=== PATIENT | male | born 1940 | race Two or more races ===

== ENCOUNTER 2017-04-06 12:20 | Inpatient (IN) | payer OTHER ==
[~2017-04-06] VITALS: Ht 167.6 cm; Wt 60.8 kg
[2017-04-06 13:32] LABS: MEAN CORPUSCULAR HEMOGLOBIN 46.8 PG (27.0-31.0); MEAN CORPUSCULAR HGB CONC 35.8 G/DL (32.0-36.0); MEAN CORPUSCULAR VOLUME 131 FL (80-99); MEAN PLATELET VOLUME 6.8 FL (6.5-10.1); PLATELET COUNT 283 K/UL (150-450); RED BLOOD COUNT 2.02 M/UL (4.70-6.10); RED CELL DISTRIBUTION WIDTH 15.9 % (11.6-14.8); WHITE BLOOD COUNT 7.9 K/UL (4.8-10.8)
[2017-04-06 13:39] LABS: PROTHROMBIN TIME 10.7 SEC (9.30-11.50)
[2017-04-06 13:45] LABS: TROPONIN I < 0.30 ng/mL (<=0.30)
[2017-04-06 13:47] LABS: ALANINE AMINOTRANSFERASE 12 U/L (3-41); ALBUMIN/GLOBULIN RATIO 1.5 (1.0-2.7); ANION GAP 12 (5-15); ASPARTATE AMINO TRANSFERASE 18 U/L (5-40); CALCIUM 8.7 mg/dL (8.6-10.2); CARBON DIOXIDE 25 mEQ/L (20-30); CHLORIDE 103 mEQ/L (98-107); CREATININE 0.8 mg/dL (0.7-1.2); HEMOLYSIS 2; SODIUM 140 mEQ/L (135-145); TOTAL PROTEIN 6.4 g/dL (6.6-8.7)
[2017-04-06 13:54] LABS: EOSINOPHILS % (MANUAL) 1 % (0-3); LYMPHOCYTES % (MANUAL) 10 % (20-45); NEUTROPHILS % (MANUAL) 82 % (45-75); TOTAL CELLS COUNTED 100
[2017-04-06 13:55] LABS: ANISOCYTOSIS 1+; BAND NEUTROPHILS % (MANUAL) 0 % (0-8); BASOPHILS % (MANUAL) 0 % (0-2); PLATELET ESTIMATE ADEQUATE; PLATELET MORPHOLOGY NORMAL
[2017-04-06 13:56] LABS: MACROCYTES 2+
[2017-04-06 13:57] LABS: CKMB 2.1 ng/mL (< 6.7)
[2017-04-06 14:25] VITALS: BP 125/64
--- NOTE | 2017-04-06 15:47 | Diagnostic Imaging Report ---
Indication: Headache Technique: Contiguous 5 mm thick transaxial imaging of the head obtained in a Siemens Sensation [address] scanner. Soft tissue and bone windows generated. Total Dose length Product (DLP): [address] Dose Index Volume (CTDIvol): 70.38 mGy Comparison: none Findings: There is mild prominence of the ventricles, basal cisterns, and cerebral sulci consistent with atrophy. Mild, nonspecific, white matter hypoattenuation is noted throughout the brain consistent with chronic small vessel disease. There is no midline shift, edema, acute hemorrhage, mass effect, or abnormal extra-axial fluid collections. Bones and extra osseous soft tissues are unremarkable. Impression: No acute intracranial bleed, mass effect or edema. Mild atrophy of the brain. Nonspecific white matter hypoattenuation probably due to chronic small vessel disease. The CT scanner at [facility] is accredited by the [employer] and the scans are performed using dose optimization techniques as appropriate to a performed exam including Automatic Exposure control.
--- NOTE | 2017-04-06 15:47 | Diagnostic Imaging Report ---
Indication: Dyspnea Comparison: None A single view chest radiograph was obtained. Findings: Fine reticular interstitial densities are demonstrated at the lung periphery. Heart is normal in size. Bones are osteopenic. Impression: Interstitial disease. Suspect fibrosis. Further evaluation with high-resolution CT the chest may be of benefit and is suggested on nonemergent basis.
--- NOTE | 2017-04-06 15:49 | Emergency Room Report ---
History of Present Illness General Chief Complaint: Syncope Source: Patient Present Illness HPI 76-year-old M presents ED for evaluation. Patient states that yesterday at work he had a syncopal episode. Was standing when he felt dizzy and fell backwards. Unsure whether he hit his head. Patient states he feels better today but feels headache. Denies any headaches. Denies any blurry vision. Denies any chest pain or shortness of breath. No other aggravating relieving factors. Denies any other associated symptom Allergies: Coded Allergies: No Known Allergies (Unverified , 04/06/17) Patient History Past Medical History: none Past Surgical History: none Pertinent Family History: none Social History: Denies: alcohol use, drug use, smoking Immunizations: UTD Reviewed Nursing Documentation: PMH: Agreed, PSxH: Agreed Nursing Documentation-PMH Past Medical History: No Stated History Review of Systems All Other Systems: negative except mentioned in HPI Physical Exam Vital Signs Date Time Temp Pulse Resp B/P Pulse Ox O2 Delivery O2 Flow Rate FiO2 04/06/17 12:40 98.6 76 16 124/75 99 Room Air Sp02 EP Interpretation: reviewed, normal General Appearance: no apparent distress, alert, GCS 15, non-toxic Head: normocephalic, atraumatic Eyes: bilateral eye PERRL, bilateral eye normal inspection ENT: hearing grossly normal, normal pharynx, no angioedema, normal voice Neck: full range of motion, supple/symm/no masses Respiratory: chest non-tender, lungs clear, normal breath sounds, speaking full sentences Cardiovascular #1: regular rate, rhythm, no edema Cardiovascular #2: 2+ carotid (R), 2+ carotid (L), 2+ radial (R), 2+ radial (L) , 2+ dorsalis pedis (R), 2+ dorsalis pedis (L) Gastrointestinal: normal bowel sounds, non tender, soft, non-distended, no guarding, no rebound Rectal: deferred Genitourinary: normal inspection, no CVA tenderness Musculoskeletal: back normal, gait/station normal, normal range of motion, non- tender Neurologic: alert, oriented x3, responsive, motor strength/tone normal, sensory intact, speech normal Psychiatric: judgement/insight normal, memory normal, mood/affect normal, no suicidal/homicidal ideation Reflexes: 3+ bicep (R), 3+ bicep (L), 3+ tricep (R), 3+ tricep (L), 3+ knee (R) , 3+ knee (L) Skin: normal color, no rash, warm/dry, well hydrated Lymphatic: no adenopathy Medical Decision Making Diagnostic Impression: Primary Impression: Syncope Qualified Codes: R55 - Syncope and collapse ER Course Hospital Course 76-year-old M presents ED s/p syncopal episode. Differential diagnoses include: WI/unstable angina, arrythmia, dehydration, CVA/ TIA Clinical course Patient placed on stretcher. on lunchroom monitor. After initial history and physical I ordered labs, EKG, chest x-ray, IVFs, CT Brain labs reviewed- no leukocytosis, hemoglobin/hematocrit ok, electrolytes okay, troponins negative EKG- NSR no acute changes interpreted by me Chest x-ray- no acute process CT brain-unremarkable Case discussed with Dr. Davey and he agreed to accept the patient to his service for further care and support I. I feel this is a highly complex case requiring extensive working including EKG/Rhythm strip, Xray/CT/US, Blood/urine lab work, repeat exams while in ED, and administration of strong opiates/narcotics for pain control, admission to hospital or close patient follow up. Diagnosis - syncope admitted to telemetry in serious condition Labs Test 04/06/17 13:17 White Blood Count 7.9 K/UL (4.8-10.8) Red Blood Count 2.02 M/UL (4.70-6.10) Hemoglobin 9.5 G/DL (14.2-18.0) Hematocrit 26.4 % (42.0-52.0) Mean Corpuscular Volume 131 FL (80-99) Mean Corpuscular Hemoglobin 46.8 PG (27.0-31.0) Mean Corpuscular Hemoglobin Concent 35.8 G/DL (32.0-36.0) Red Cell Distribution Width 15.9 % (11.6-14.8) Platelet Count 283 K/UL (150-450) Mean Platelet Volume 6.8 FL (6.5-10.1) Neutrophils (%) (Auto) % (45.0-75.0) Lymphocytes (%) (Auto) % (20.0-45.0) Monocytes (%) (Auto) % (1.0-10.0) Eosinophils (%) (Auto) % (0.0-3.0) Basophils (%) (Auto) % (0.0-2.0) Differential Total Cells Counted 100 Neutrophils % (Manual) 82 % (45-75) Lymphocytes % (Manual) 10 % (20-45) Monocytes % (Manual) 7 % (1-10) Eosinophils % (Manual) 1 % (0-3) Basophils % (Manual) 0 % (0-2) Band Neutrophils 0 % (0-8) Platelet Estimate Adequate Platelet Morphology Normal Anisocytosis 1+ Macrocytosis 2+ Prothrombin Time 10.7 SEC (9.30-11.50) Prothromb Time International Ratio 1.0 (0.9-1.1) Activated Partial Thromboplast Time 27 SEC (23-33) Sodium Level 140 mEQ/L (135-145) Potassium Level 4.0 mEQ/L (3.4-4.9) Chloride Level 103 mEQ/L (98-107) Carbon Dioxide Level 25 mEQ/L (20-30) Anion Gap 12 (5-15) Blood Urea Nitrogen 14 mg/dL (7-23) Creatinine 0.8 mg/dL (0.7-1.2) Estimat Glomerular Filtration Rate mL/min (>60) Glucose Level 120 mg/dL (74-106) Calcium Level 8.7 mg/dL (8.6-10.2) Total Bilirubin 0.6 mg/dL (0.0-1.2) Aspartate Amino Transf (AST/SGOT) 18 U/L (5-40) Alanine Aminotransferase (ALT/SGPT) 12 U/L (3-41) Alkaline Phosphatase 65 U/L (40-129) Total Creatine Kinase 69 U/L (38-174) Creatine Kinase MB 2.1 ng/mL (< 6.7) Creatine Kinase MB Relative Index 3.0 Troponin I < 0.30 ng/mL (<=0.30) Total Protein 6.4 g/dL (6.6-8.7) Albumin 3.9 g/dL (3.5-5.2) Globulin 2.5 g/dL Albumin/Globulin Ratio 1.5 (1.0-2.7) EKG Diagnostic Results Rate: normal Rhythm: NSR ST Segments: no acute changes ASA given to the pt in ED: No Rhythm Strip Diag. Results EP Interpretation: yes Rhythm: NSR, no PVC's, no ectopy Chest X-Ray Diagnostic Results Chest X-Ray Diagnostic Results : Chest X-Ray Ordered: Yes # of Views/Limited/Complete: 1 View Indication: Other - syncope EP Interpretation: Yes Interpretation: no consolidation, no effusion, no pneumothorax, no acute cardiopulmonary disease Impression: No acute disease Interpreting ER Provider: Electronically signed by Seven Fregoso MD CT/MRI/US Diagnostic Results CT/MRI/US Diagnostic Results : Imaging Test Ordered: CT head Impression no acute process Last Vital Signs Date Time Temp Pulse Resp B/P Pulse Ox O2 Delivery O2 Flow Rate FiO2 04/06/17 12:40 98.6 76 16 124/75 99 Room Air Status: improved Disposition: ADMITTED INPATIENT Condition: Serious Referrals: NON PHYSICIAN (PCP) SEVEN FREGOSO M.D. Apr 06, 2017 15:49
[2017-04-06 15:54] VITALS: BP 113/66
[2017-04-06] MEDS ORDERED: NKM (15:58)
[2017-04-06 16:30] VITALS: BP 107/63
[2017-04-06] MEDS ORDERED: Morphine Sulfate 2mg/ml Inj IVP PRN (16:45)
[2017-04-06] MEDS ORDERED: Miralax 17gm pkt ORAL PRN (16:45)
[2017-04-06] MEDS ORDERED: LORazepam Inj 2mg/ml 1ml IV PRN (16:45)
[2017-04-06] MEDS ORDERED: DuoNeb 0.5-3(2.5)mg/3ml neb HHN PRN (16:45)
[2017-04-06] MEDS ORDERED: Nitroglycerin Subl 0.4mg tab (Bottle Of 25) SL PRN (16:45)
[2017-04-06] MEDS ORDERED: Mylanta II UD 30ml ORAL PRN (16:45)
[2017-04-06 20:00] VITALS: BP 140/75
[2017-04-06] MEDS: Heparin 5000 units/ml inj SUBQ SCH (21:32)
--- NOTE | 2017-04-06 21:53 | Consultation ---
History of Present Illness General Date patient seen: Apr 06, 2017 Chief Complaint: Syncope Referring physician: Dr. roy Reason for Consultation: pulmonary fibrosis Present Illness HPI 76-year-old male without any PMHx presented to ED for evaluation of a syncopal episode. Was standing when he felt dizzy and fell backwards. Unsure whether he hit his head. Patient states he feels better today but feels headache. Denies any headaches. Denies any blurry vision. He was found to have anemia and pulmonary fibrosis on CXR. He is admitted to telemetry for further evaluation. Allergies: Coded Allergies: No Known Allergies (Unverified , 04/06/17) Medication History Scheduled No Known Medications* (NKM - No Known Medications*), 0 ., (Reported) Patient History Healthcare decision maker Resuscitation status Full Code Advanced Directive on File No Family History Family History: (1) No pertinent past medical history Review of Systems All Other Systems: negative except mentioned in HPI Physical Exam General Appearance: WD/WN Lines, tubes and drains: peripheral, central line HEENT: normocephalic, atraumatic Neck: non-tender, normal alignment Respiratory/Chest: chest wall non-tender, lungs clear Cardiovascular/Chest: normal peripheral pulses, normal rate Last 24 Hour Vital Signs Date Time Temp Pulse Resp B/P Pulse Ox O2 Delivery O2 Flow Rate FiO2 04/06/17 20:00 97.0 72 16 140/75 97 Room Air 04/06/17 18:26 69 16 120/99 98 Room Air 04/06/17 16:30 66 12 107/63 99 Room Air 04/06/17 15:54 97.6 64 14 113/66 98 Room Air 04/06/17 14:25 98.0 80 16 125/64 100 Room Air 04/06/17 12:40 98.6 76 16 124/75 99 Room Air Laboratory Tests Test 04/06/17 13:17 White Blood Count 7.9 K/UL (4.8-10.8) Red Blood Count 2.02 M/UL (4.70-6.10) L Hemoglobin 9.5 G/DL (14.2-18.0) L Hematocrit 26.4 % (42.0-52.0) L Mean Corpuscular Volume 131 FL (80-99) H Mean Corpuscular Hemoglobin 46.8 PG (27.0-31.0) H Mean Corpuscular Hemoglobin Concent 35.8 G/DL (32.0-36.0) Red Cell Distribution Width 15.9 % (11.6-14.8) H Platelet Count 283 K/UL (150-450) Mean Platelet Volume 6.8 FL (6.5-10.1) Neutrophils (%) (Auto) % (45.0-75.0) Lymphocytes (%) (Auto) % (20.0-45.0) Monocytes (%) (Auto) % (1.0-10.0) Eosinophils (%) (Auto) % (0.0-3.0) Basophils (%) (Auto) % (0.0-2.0) Differential Total Cells Counted 100 Neutrophils % (Manual) 82 % (45-75) H Lymphocytes % (Manual) 10 % (20-45) L Monocytes % (Manual) 7 % (1-10) Eosinophils % (Manual) 1 % (0-3) Basophils % (Manual) 0 % (0-2) Band Neutrophils 0 % (0-8) Platelet Estimate Adequate Platelet Morphology Normal Anisocytosis 1+ Macrocytosis 2+ Prothrombin Time 10.7 SEC (9.30-11.50) Prothromb Time International Ratio 1.0 (0.9-1.1) Activated Partial Thromboplast Time 27 SEC (23-33) Sodium Level 140 mEQ/L (135-145) Potassium Level 4.0 mEQ/L (3.4-4.9) Chloride Level 103 mEQ/L (98-107) Carbon Dioxide Level 25 mEQ/L (20-30) Anion Gap 12 (5-15) Blood Urea Nitrogen 14 mg/dL (7-23) Creatinine 0.8 mg/dL (0.7-1.2) Estimat Glomerular Filtration Rate mL/min (>60) Glucose Level 120 mg/dL (74-106) H Calcium Level 8.7 mg/dL (8.6-10.2) Total Bilirubin 0.6 mg/dL (0.0-1.2) Aspartate Amino Transf (AST/SGOT) 18 U/L (5-40) Alanine Aminotransferase (ALT/SGPT) 12 U/L (3-41) Alkaline Phosphatase 65 U/L (40-129) Total Creatine Kinase 69 U/L (38-174) Creatine Kinase MB 2.1 ng/mL (< 6.7) Creatine Kinase MB Relative Index 3.0 Troponin I < 0.30 ng/mL (<=0.30) Total Protein 6.4 g/dL (6.6-8.7) L Albumin 3.9 g/dL (3.5-5.2) Globulin 2.5 g/dL Albumin/Globulin Ratio 1.5 (1.0-2.7) Height (Feet): 5 Height (Inches): 6.00 Weight (Pounds): 134 Medications Current Medications Medications (Trade) Dose Ordered Sig/Andrea Route PRN Reason Start Time Stop Time Status Last Admin Dose Admin Acetaminophen (Tylenol) 650 mg Q4H PRN ORAL fever 04/06/17 16:45 05/06/17 16:44 Al Hydroxide/Mg Hydroxide (Mylanta II) 30 ml Q6H PRN ORAL dyspepsia 04/06/17 16:45 05/06/17 16:44 Albuterol/ Ipratropium (DuoNeb 0.5-3(2.5)mg/3ml) 3 ml Q4H PRN HHN Shortness of Breath 04/06/17 16:45 04/11/17 16:44 Clonidine HCl (Catapres) 0.1 mg Q4H PRN ORAL SBP > 160 04/06/17 16:45 05/06/17 16:44 Dextrose (Dextrose 50%) STAT PRN IV Hypoglycemia 04/06/17 16:45 05/06/17 16:44 Heparin Sodium (Porcine) (Heparin 5000 units/ml) 5,000 units EVERY 12 HOURS SUBQ 04/06/17 21:00 05/06/17 20:59 04/06/17 21:32 Lorazepam (Ativan 2mg/ml 1ml) 0.5 mg Q4H PRN IV For Anxiety 04/06/17 16:45 04/13/17 16:44 Morphine Sulfate (Morphine Sulfate) 1 mg Q4H PRN IVP For Pain 7-10 04/06/17 16:45 04/13/17 16:44 Nitroglycerin (Ntg) 0.4 mg Q5M X 3 DOSES PRN SL Prn Chest Pain 04/06/17 16:45 05/06/17 16:44 Ondansetron HCl (Zofran) 4 mg Q6H PRN IVP Nausea & Vomiting 04/06/17 16:45 05/06/17 16:44 Polyethylene Glycol (Miralax) 17 gm HSPRN PRN ORAL Constipation 04/06/17 16:45 05/06/17 16:44 Temazepam (Restoril) 15 mg HSPRN PRN ORAL Insomnia 04/06/17 16:45 04/13/17 16:44 Assessment/Plan Problem List: (1) Syncope ICD Codes: R55 - Syncope and collapse SNOMED: 541973890 Qualifiers: Qualified Codes: R55 - Syncope and collapse (2) Pulmonary fibrosis ICD Codes: J84.10 - Pulmonary fibrosis, unspecified SNOMED: 91528518 (3) Anemia ICD Codes: D64.9 - Anemia, unspecified SNOMED: 045269270 Assessment/Plan tele monitoring echo doppler of carotid artery CT chest anemia w/u CONCHITA LUGO Apr 06, 2017 21:53
[2017-04-07] VITALS: BP 109/64
[2017-04-07 04:00] VITALS: BP 113/68
[2017-04-07 07:24] LABS: MEAN CORPUSCULAR HEMOGLOBIN 46.8 PG (27.0-31.0); MEAN CORPUSCULAR HGB CONC 35.5 G/DL (32.0-36.0); MEAN CORPUSCULAR VOLUME 132 FL (80-99); MEAN PLATELET VOLUME 6.4 FL (6.5-10.1); PLATELET COUNT 280 K/UL (150-450); RED BLOOD COUNT 2.11 M/UL (4.70-6.10); RED CELL DISTRIBUTION WIDTH 16.1 % (11.6-14.8); WHITE BLOOD COUNT 7.2 K/UL (4.8-10.8)
[2017-04-07 07:46] LABS: PROTHROMBIN TIME 10.2 SEC (9.30-11.50)
[2017-04-07 07:54] LABS: ALANINE AMINOTRANSFERASE 11 U/L (3-41); ALBUMIN/GLOBULIN RATIO 1.3 (1.0-2.7); ANION GAP 10 (5-15); ASPARTATE AMINO TRANSFERASE 18 U/L (5-40); CALCIUM 8.8 mg/dL (8.6-10.2); CARBON DIOXIDE 26 mEQ/L (20-30); CHLORIDE 104 mEQ/L (98-107); CHOLESTEROL 152 mg/dL (< 200); CREATININE 0.8 mg/dL (0.7-1.2); LACTATE DEHYDROGENASE 468 U/L (135-230); LDL CHOLESTEROL (CALC.) 81 mg/dL (60-99); POTASSIUM 4.5 mEQ/L (3.4-4.9); SODIUM 140 mEQ/L (135-145); TOTAL PROTEIN 6.4 g/dL (6.6-8.7)
[2017-04-07 08:00] VITALS: BP 120/65
[2017-04-07 08:23] LABS: ANISOCYTOSIS 1+; BAND NEUTROPHILS % (MANUAL) 5 % (0-8); BASOPHILS % (MANUAL) 0 % (0-2); EOSINOPHILS % (MANUAL) 2 % (0-3); LYMPHOCYTES % (MANUAL) 20 % (20-45); MACROCYTES 2+; NEUTROPHILS % (MANUAL) 67 % (45-75); PLATELET ESTIMATE ADEQUATE; PLATELET MORPHOLOGY NORMAL; TOTAL CELLS COUNTED 100
[2017-04-07 08:24] LABS: HYPOCHROMASIA 1+
[2017-04-07 08:31] LABS: HEMOLYSIS 18; IRON 72 ug/dL (59-158); TOTAL IRON BINDING CAPACITY 221 ug/dL (250-400)
[2017-04-07] MEDS: Heparin 5000 units/ml inj SUBQ SCH ×2 (08:38→20:56)
[2017-04-07 09:34] LABS: RETICULOCYTE COUNT 0.9 % (0.0-2.0)
[2017-04-07 09:35] LABS: ERYTHROCYTE SEDIMENTATION RATE 93 MM/HR (0-20)
[2017-04-07 09:38] LABS: PATH BLOOD SMEAR/OMC SENT TO PATHOLOGIST
[2017-04-07 10:37] LABS: OTHERS PATHOLOGIST COMMENT
--- NOTE | 2017-04-07 11:59 | History & Physical ---
History and Physical History & Physicial Zaid Davey MD Apr 07, 2017 11:59
[2017-04-07 12:00] VITALS: BP 110/75
[2017-04-07] MEDS ORDERED: Vitamin B12 1000mcg/ml Inj IM SCH (13:00)
[2017-04-07] MEDS ORDERED: Promethazine/Codeine 5ml UD ORAL PRN (13:15)
[2017-04-07 16:00] VITALS: BP 118/66
--- NOTE | 2017-04-07 16:14 | Diagnostic Imaging Report ---
Indication: Chest pain Technique: Continuous helical transaxial imaging of the chest was obtained from the thoracic inlet to the upper abdomen. No intravenous contrast was administered. Coronal 2-D reformats were also obtained. Total Dose length Product (DLP): [address] Dose Index Volume (CTDIvol): 16 mGy Comparison: none Findings: There are peripheral reticular densities demonstrated within both upper and lower lobes but worse within the lower lobe. Honeycombing noted at the lung bases. There is no airspace consolidation. Aorta is mildly calcified. No adenopathy or abnormal fluid collections demonstrated within the chest. There are multiple gallstones present within a contracted gallbladder. There is apparent left hydronephrosis with dilatation of the upper pole calyces. This is not evaluated adequately on the current study. It is possible that the findings due to parapelvic cysts rather than hydronephrosis. Impression: Interstitial: Fibrosis. Mild atherosclerotic disease Gallstones Left hydronephrosis versus parapelvic cysts not adequately visualized or evaluated on this exam. The CT scanner at [facility] is accredited by the [employer] and the scans are performed using dose optimization techniques as appropriate to a performed exam including Automatic Exposure control.
--- NOTE | 2017-04-07 17:24 | Cardiology Progress Note ---
Assessment/Plan Assessment/Plan syncope probable voluem depletion anemia sever vit b12 deff pulm fibrosis inclease ldh nrom retic ivf orthosttic vitla folatic acid b12 echo [id number] Objective Last 24 Hour Vital Signs Date Time Temp Pulse Resp B/P Pulse Ox O2 Delivery O2 Flow Rate FiO2 04/07/17 16:00 97.9 79 19 118/66 97 Room Air 04/07/17 12:00 97.9 92 19 110/75 98 Room Air 04/07/17 12:00 71 04/07/17 08:13 70 18 Room Air 04/07/17 08:00 74 04/07/17 08:00 97.5 74 19 120/65 95 Room Air 04/07/17 04:00 97.9 74 16 113/68 95 Room Air 04/07/17 04:00 80 04/07/17 00:00 68 04/07/17 00:00 98.2 69 18 109/64 97 Room Air 04/06/17 20:00 97.0 72 16 140/75 97 Room Air 04/06/17 20:00 70 04/06/17 18:26 69 16 120/99 98 Room Air Intake and Output 04/06/17 04/07/17 19:00 07:00 Intake Total 1000 ml 120 ml Balance 1000 ml 120 ml Intake Oral 0 ml 120 ml IV Total 1000 ml # Voids 3 # Bowel Movements 2 Laboratory Tests Test 04/07/17 06:45 04/07/17 11:00 White Blood Count 7.2 K/UL (4.8-10.8) Red Blood Count 2.11 M/UL (4.70-6.10) L Hemoglobin 9.9 G/DL (14.2-18.0) L Hematocrit 27.8 % (42.0-52.0) L Mean Corpuscular Volume 132 FL (80-99) H Mean Corpuscular Hemoglobin 46.8 PG (27.0-31.0) H Mean Corpuscular Hemoglobin Concent 35.5 G/DL (32.0-36.0) Red Cell Distribution Width 16.1 % (11.6-14.8) H Platelet Count 280 K/UL (150-450) Mean Platelet Volume 6.4 FL (6.5-10.1) L Neutrophils (%) (Auto) % (45.0-75.0) Lymphocytes (%) (Auto) % (20.0-45.0) Monocytes (%) (Auto) % (1.0-10.0) Eosinophils (%) (Auto) % (0.0-3.0) Basophils (%) (Auto) % (0.0-2.0) Differential Total Cells Counted 100 Neutrophils % (Manual) 67 % (45-75) Lymphocytes % (Manual) 20 % (20-45) Monocytes % (Manual) 6 % (1-10) Eosinophils % (Manual) 2 % (0-3) Basophils % (Manual) 0 % (0-2) Band Neutrophils 5 % (0-8) Platelet Estimate Adequate Platelet Morphology Normal Hypochromasia 1+ Anisocytosis 1+ Macrocytosis 2+ Erythrocyte Sedimentation Rate 93 MM/HR (0-20) H Reticulocyte Count 0.9 % (0.0-2.0) Prothrombin Time 10.2 SEC (9.30-11.50) Prothromb Time International Ratio 1.0 (0.9-1.1) Activated Partial Thromboplast Time 28 SEC (23-33) Sodium Level 140 mEQ/L (135-145) Potassium Level 4.5 mEQ/L (3.4-4.9) Chloride Level 104 mEQ/L (98-107) Carbon Dioxide Level 26 mEQ/L (20-30) Anion Gap 10 (5-15) Blood Urea Nitrogen 13 mg/dL (7-23) Creatinine 0.8 mg/dL (0.7-1.2) Estimat Glomerular Filtration Rate mL/min (>60) Glucose Level 102 mg/dL (74-106) Calcium Level 8.8 mg/dL (8.6-10.2) Iron Level 72 ug/dL (59-158) Total Iron Binding Capacity 221 ug/dL (250-400) L Percent Iron Saturation 33 % (15-50) Unsaturated Iron Binding 149 ug/dL (112-346) Total Bilirubin 0.5 mg/dL (0.0-1.2) Aspartate Amino Transf (AST/SGOT) 18 U/L (5-40) Alanine Aminotransferase (ALT/SGPT) 11 U/L (3-41) Alkaline Phosphatase 62 U/L (40-129) Lactate Dehydrogenase 468 U/L (135-230) H Total Protein 6.4 g/dL (6.6-8.7) L Albumin 3.7 g/dL (3.5-5.2) Globulin 2.7 g/dL Albumin/Globulin Ratio 1.3 (1.0-2.7) Triglycerides Level 103 mg/dL (< 150) Cholesterol Level 152 mg/dL (< 200) LDL Cholesterol 81 mg/dL (60-99) HDL Cholesterol 50 mg/dL (> 60) Cholesterol/HDL Ratio 3.0 (3.3-4.4) L Carcinoembryonic Antigen 5.9 ng/mL H Vitamin B12 Level 30 pg/mL (211-946) L Folate Pending Thyroid Stimulating Hormone (TSH) 1.400 uIU/mL (0.300-4.500) Stool Occult Blood Pending SHAE PATEL Apr 07, 2017 17:24
--- NOTE | 2017-04-07 19:45 | History and Physical Report ---
DATE OF ADMISSION: 04/06/2017 CHIEF COMPLAINT: Dizziness and syncope. HISTORY OF PRESENT ILLNESS: This is a 76-year-old gentleman, denies any past medical history and past surgical history, who has presented to the hospital. While he was at work, he felt dizzy. He collapsed and fell backward and the patient is unsure that he hit the head. The patient felt like some headache. No nausea or vomiting. No prior history of dizziness in the past or heart disease. Denies any blurry vision. Denies any double vision. No seizure activity. No bowel or urinary incontinence. The patient shortly after initial evaluation in the emergency was found to be anemic and subsequently was admitted to the hospital with syncope with collapse as well as anemia. Chest x-ray confirmed the patient has a pulmonary fibrosis and the patient subsequently was admitted to telemetry for further evaluation and workup. PAST MEDICAL HISTORY AND PAST SURGICAL HISTORY: As above. He denies any past medical history or past surgical history. MEDICATIONS AT HOME: None. ALLERGIES: No known drug allergies. SOCIAL HISTORY: Denies any smoking, alcohol, or drugs. FAMILY HISTORY: Noncontributory. REVIEW OF SYSTEMS: Mostly unremarkable except what is mentioned earlier in the history of present illness. Denies any double vision. Denies any suicidal or homicidal ideation. Denies any hemoptysis or hematochezia. Denies any bowel or urinary incontinence. PHYSICAL EXAMINATION: VITAL SIGNS: Upon arrival, temperature 98.6 degrees, pulse of 76, respirations 16, and blood pressure 124/75. GENERAL: The patient is awake, responsive, and in no acute distress. HEENT: Pupils reactive to light. Extraocular movements intact. NECK: Supple. No JVD. LUNGS: Good air entry. No wheezing or rales. HEART: S1 and S2. Regular rhythm. No gallops. ABDOMEN: Soft, nondistended, and nontender. Positive bowel sounds. EXTREMITIES: No cyanosis, clubbing, or edema. NEUROLOGIC: Cranial nerves II through XII are grossly intact. The patient is moving all his extremities. Gait was intact. LABORATORY DATA: On admission from the ER, WBC of 7.9, hemoglobin 9.5, hematocrit 26, and platelets is 283,000. Sodium 140, potassium 4.0, chloride 103, bicarbonate 25, BUN 14, creatinine 0.8, and glucose is 120. Calcium is 8.7. First troponin less than 0.30. Total protein 6.4. PT of 10, INR 1.0, and PTT of 27. The patient's chest x-ray showed the interstitial disease suspected fibrosis. The patient had a CT of the head was done. No acute intracranial bleed, mass effect, or edema. Mild atrophy of the brain and nonspecific white matter hypoattenuation probably due to the chronic mild disease. The patient had a carotid duplex that was unremarkable except for minimal changes in the 30% to 40% ICA on the right side as well as left side. EKG is noted to be in normal sinus rhythm and ventricular rate of 89. No ST elevation. No T-wave inversion was noted. ASSESSMENT: 1. Syncope with collapse. 2. Pulmonary fibrosis. 3. Anemia with macrocytic anemia, possible vitamin B12 deficiency. PLAN: We will follow up with the Pulmonary consultation with Dr. Xie and CT scan of the chest. We will follow up with the echocardiogram, monitor laboratory closely, anemia workup, and 2D echo. Code status is Full Code. DVT prophylaxis with heparin subcutaneously. Zaid Davey M.D. DR: BRENDA JOB#: [id number] CC:
[2017-04-07 20:00] VITALS: BP 109/68
[2017-04-08] VITALS: BP 101/59
--- NOTE | 2017-04-08 03:00 | Consultation ---
DATE OF CONSULTATION: 04/07/2017 CARDIOLOGY CONSULTATION REFERRING PHYSICIANS: 1. Cheri Xie M.D. 2. Zaid Davey M.D. REASON FOR REFERRAL: Syncope. HISTORY OF PRESENT ILLNESS: This is a 76-year-old gentleman, who is apparently working in a restaurant. As I understand it, he tells me that he had a cold with some sore throat and some phlegm for couple of days and he felt dizzy and apparently he fell. He is not sure if he had hit his head. He states he thinks he may have also slipped, but he is not sure. Nevertheless, he was evaluated by the paramedics and was admitted to the hospital here at [facility]. He feels fine now. When he stood up, he will feel somewhat dizzy and he had to have somebody help him at times too. He does not have any chest pain or pressure. There is no PND or orthopnea. No palpitations. PAST MEDICAL HISTORY: He denies any diabetes, high blood pressure, heart attack, cancer, stroke, hepatitis, tuberculosis, asthma, or emphysema. No ulcers. No kidney problems, liver problems, or thyroid problems. He does have a history of anemia few years ago, but he never followed up just to find out. No other medical problems. ALLERGIES: He is not allergic to any medications. SOCIAL HISTORY: He does not smoke at this time although he used to 30 years ago. He does drink alcoholic beverages. No drug use. REVIEW OF SYSTEMS: Gastrointestinal: He denies any nausea, vomiting, diarrhea, or constipation. Genitourinary: He denies. Pulmonary: Positive for some cough and sputum production with white to yellow phlegm. Constitutional: Negative. Neurologic: Negative. PHYSICAL EXAMINATION: GENERAL: Shows to be elderly gentleman, in no respiratory distress. HEENT: Unremarkable. NECK: Supple. No jugular venous distention. No abdominojugular reflux noted. LUNGS: Clear to auscultation and percussion for the most part, although he does have some basilar crackles on the left side that cleared with further . CARDIAC: Somewhat irregular although it may be just a ectopy. No heaves or thrills or gallops noted. ABDOMEN: Soft and nontender. Positive bowel sounds. EXTREMITIES: There is no clubbing, cyanosis, or edema. NEUROLOGIC: He is awake, alert, responsive, and in no apparent respiratory distress. DIAGNOSTIC DATA AND LABORATORY VALUES: A carotid duplex showed 40% stenosis on the right side and also on the left side and possibly even approaching 50% the distal internal carotid artery. His electrocardiogram shows sinus rhythm, normal QRS axis, no ST or T wave abnormalities. His telemetry data shows sinus rhythm with some PACs being noted on several occasions. No evidence of atrial fibrillation. His blood test, sodium 140, potassium 4.5, chloride 104, bicarbonate 26, BUN 30, creatinine 0.8, and glucose of 102. Iron is 72, 32% saturation. Liver function tests are normal. LDH is 468. Total protein 6.4. Total cholesterol 152 with a LDL of 81 and HDL of 50. His CEA of 5.9. His B12 is only 30. TSH of 1.4. His INR is 1.3 and a PTT of 28. His x-rays and CT scan of the chest was performed showed basically interstitial fibrosis, mild atherosclerosis, gallstones, left hydronephrosis versus parapelvic cyst. CT scan of the head that showed no intracranial bleed, mass effect, or edema. Mild atrophy of the brain. Nonspecific white matter. Chest x-ray was also performed shows interstitial disease that suspect fibrosis. ASSESSMENT AND PLAN: 1. Syncope. 2. Anemia. 3. Interstitial pulmonary fibrosis. 4. B12 deficiency. 5. Elevated LDH. This patient was seen in cardiac consultation. Based on the symptoms, it is possible that he basically had syncope secondary to volume depletion. He had not been eating much and drinking much over the past two days prior to this episode and he was getting some dizziness on standing. He is somewhat anemic with hemoglobin down to 9.9. His vitamin B12 was significantly decreased and requires administration of vitamin B12 and folic acid. He some intravenous fluids, orthostatic vitals will be checked for further evaluation for the cause of pulmonary fibrosis as per Dr. Xie, and echocardiogram will be ordered to complete the syncope although I suspect, like I said, volume depletion. Thank you, Dr. Davey, for allowing me to participate in the care of this patient. Mathew Rush M.D. DR: JUSTYN JOB#: [id number] CC:
[2017-04-08 07:33] LABS: TROPONIN I < 0.30 ng/mL (<=0.30)
[2017-04-08 08:38] VITALS: BP 118/66
[2017-04-08] MEDS ORDERED: Vitamin B12 1000mcg/ml Inj SUBQ SCH (09:00)
[2017-04-08] MEDS: Heparin 5000 units/ml inj SUBQ SCH (09:17)
--- NOTE | 2017-04-08 11:05 | Pulmonology Progress Note ---
Assessment/Plan Problems: (1) Syncope (2) Pulmonary fibrosis (3) Anemia Assessment/Plan OB pending cardio note appreciated echo reviewed pt/ot med/surg dc home when OK with Cardio Subjective ROS Limited/Unobtainable: No Constitutional: Reports: no symptoms HEENT: Repors: no symptoms Allergies: Coded Allergies: No Known Allergies (Unverified , 04/06/17) Objective Last 24 Hour Vital Signs Date Time Temp Pulse Resp B/P Pulse Ox O2 Delivery O2 Flow Rate FiO2 04/08/17 09:45 97.0 04/08/17 09:10 95 04/08/17 09:05 92 04/08/17 09:02 97 16 Room Air 04/08/17 09:00 82 04/08/17 08:38 97.0 83 18 118/66 97 Room Air 04/08/17 08:02 104 04/08/17 04:59 79 04/08/17 04:00 72 89 97 04/08/17 00:00 69 04/08/17 00:00 98.2 67 18 101/59 97 Room Air 04/07/17 20:00 79 04/07/17 20:00 98.2 78 18 109/68 97 Room Air 04/07/17 19:56 80 18 Room Air 04/07/17 18:00 74 85 97 04/07/17 16:00 78 04/07/17 16:00 97.9 79 19 118/66 97 Room Air 04/07/17 12:00 97.9 92 19 110/75 98 Room Air 04/07/17 12:00 71 Intake and Output 04/07/17 04/08/17 19:00 07:00 Intake Total 720 ml Balance 720 ml Intake Oral 720 ml # Voids 2 2 # Bowel Movements [address] chest reviewed, mild pulmonary fibrosis OB pending echo reviewed General Appearance: WD/WN Lines, tubes and drains: peripheral, central line HEENT: normocephalic, atraumatic Neck: non-tender, normal alignment Respiratory/Chest: chest wall non-tender, lungs clear Cardiovascular/Chest: normal peripheral pulses, normal rate Laboratory Tests 04/08/17 05:05: Troponin I < 0.30, Pro-B-Type Natriuretic Peptide 90 Current Medications Medications (Trade) Dose Ordered Sig/Andrea Route PRN Reason Start Time Stop Time Status Last Admin Dose Admin Acetaminophen (Tylenol) 650 mg Q4H PRN ORAL fever 04/06/17 16:45 05/06/17 16:44 Al Hydroxide/Mg Hydroxide (Mylanta II) 30 ml Q6H PRN ORAL dyspepsia 04/06/17 16:45 05/06/17 16:44 Albuterol/ Ipratropium (DuoNeb 0.5-3(2.5)mg/3ml) 3 ml Q4H PRN HHN Shortness of Breath 04/06/17 16:45 04/11/17 16:44 Clonidine HCl (Catapres) 0.1 mg Q4H PRN ORAL SBP > 160 04/06/17 16:45 05/06/17 16:44 Cyanocobalamin (Vitamin B12) 1,000 mcg DAILY SUBQ 04/08/17 09:00 04/12/17 09:01 04/08/17 09:14 Dextrose (Dextrose 50%) STAT PRN IV Hypoglycemia 04/06/17 16:45 05/06/17 16:44 Heparin Sodium (Porcine) (Heparin 5000 units/ml) 5,000 units EVERY 12 HOURS SUBQ 04/06/17 21:00 05/06/17 20:59 04/08/17 09:17 Lorazepam (Ativan 2mg/ml 1ml) 0.5 mg Q4H PRN IV For Anxiety 04/06/17 16:45 04/13/17 16:44 Morphine Sulfate (Morphine Sulfate) 1 mg Q4H PRN IVP For Pain 7-04/06/17 16:45 04/13/17 16:44 04/08/17 09:16 Nitroglycerin (Ntg) 0.4 mg Q5M X 3 DOSES PRN SL Prn Chest Pain 04/06/17 16:45 05/06/17 16:44 Ondansetron HCl (Zofran) 4 mg Q6H PRN IVP Nausea & Vomiting 04/06/17 16:45 05/06/17 16:44 Polyethylene Glycol (Miralax) 17 gm HSPRN PRN ORAL Constipation 04/06/17 16:45 05/06/17 16:44 Promethazine HCl/ Codeine (Phenergan with Codeine) 5 ml Q4H PRN ORAL For Cough 04/07/17 13:15 05/07/17 13:14 04/07/17 18:09 Temazepam (Restoril) 15 mg HSPRN PRN ORAL Insomnia 04/06/17 16:45 04/13/17 16:44 CONCHITA LUGO Apr 08, 2017 11:05
--- NOTE | 2017-04-09 17:31 | Cardiology Report ---
APPROVED REPORT EXAM: Two-dimensional and M-mode echocardiogram with Doppler and color Doppler. INDICATION Left ventricular function M-Mode DIMENSIONS IVSd0.5 (0.7-1.1cm)Left Atrium (MM)3.1 (1.6-4.0cm) LVDd4.2 (3.5-5.6cm)Aortic Root3.3 (2.0-3.7cm) PWd0.6 (0.7-1.1cm)Aortic Cusp Exc.1.9 (1.5-2.0cm) LVDs2.3 (2.5-4.0cm) PWs0.6 cm Normal left ventricular chamber size, systolic function and wall motion. Left ventricular ejection fraction estimated to be 55-60 %. No evidence of left ventricular hypertrophy. No evidence of pericardial fat or effusion. Right cardiac chamber sizes are within normal limits. Mild left atrial enlargement by 2D. Focal aortic valve sclerosis with adequate cusp excursion Thickened mitral valve leaflets with normal excursion. Mitral annulus and aortic root calcification. Pulmonic valve not well visualized. Normal tricuspid valve structure. IVC is normal in size with physiological collapse. A color flow and spectral Doppler study was performed and revealed: No aortic regurgitation. No mitral regurgitation. Left ventricular diastolic dysfunction grade 1. Mild tricuspid regurgitation. Tricuspid systolic velocities suggests peak right ventricular systolic pressure of 16mmHg
--- NOTE | 2017-04-09 17:52 | Cardiology Report ---
APPROVED REPORT EKG Measurement Heart [id number] ND [id number] Sinus rhythm with marked sinus arrhythmia Otherwise normal ECG
--- NOTE | 2017-04-10 12:26 | Diagnostic Imaging Report ---
APPROVED REPORT CPT Code: 19309 Vascular Symptoms Dizziness and Vertigo Syncope Doppler Spectral Velocity Analysis RightLeft dICA86/31 cm/gsUIO690/44 cm/s gUJJ860/37 cm/qdXQK351/32 cm/s cBMW553/35 cm/spICA91/31 cm/s ECA76/8 cm/sECA79/13 cm/s dCCA70/18 cm/sdCCA80/22 cm/s mCCA85/27 cm/smCCA93/23 cm/s pCCA95/26 cm/wuIUA979/22 cm/s Vert.69/19 cm/sVert.58/19 cm/s Right ICA/CCA ratio1.1Left ICA/CCA ratio1.5 RIGHT SIDE: CCA/BULB- Imaging reveals irregular, mild plaque in the carotid bulb and minimal plaque in the carotid artery. Doppler spectral flow analysis indicates the degree of stenosis in the proximal ICA is mild (30%-40%). ECA - Imaging reveals no significant plaque in the external carotid artery. VERTEBRAL - The vertebral artery is patent, without evidence of stenosis or steal. LEFT SIDE: CCA/BULB- Imaging reveals irregular, mild plaque in the carotid bulb and minimal plaque in the carotid artery. Doppler spectral flow analysis indicates the degree of stenosis in the proximal ICA is mild (30%-40%). However, distal ICA velocities indicate a possible stenosis approaching 50%. ECA - Imaging reveals minimal stenosis (20%-30%) in the external carotid artery. VERTEBRAL - The vertebral artery is patent, without evidence of stenosis or steal.
--- NOTE | 2017-04-10 14:55 | Discharge Summary ---
Discharge Summary Hospital Course Date of Admission Apr 06, 2017 at 15:10 Date of Discharge Apr 08, 2017 at 12:38 Admitting Diagnosis sepsis HPI Moshe Gaffney is a 76 year old male who was admitted on Apr 06, 2017 at 15:10 for Sepsis Hospital Course dc summary #[id number] Discharge Condition Upon Discharge: stable Discharge Disposition Patient was discharged to Home (01) Discharge Diagnoses: Discharge Instructions Discharge Instructions Special Instructions I have been assigned to complete a D/C Summary on this account. I was not involved in the patient management Yobany Newellemily)Peggy NP Apr 10, 2017 14:55
--- NOTE | 2017-04-10 20:30 | Discharge Summary 2 SIG ---
DATE OF ADMISSION: 04/06/2017 DATE OF DISCHARGE: 04/08/2017 REASON FOR ADMISSION: This is a 76-year-old male without past medical history, while at work, felt dizzy and he fell backwards. He is unsure if he hit his head. He felt better the next day, but still felt headache. He denied blurry vision. Denied chest pain or shortness of breath. In the emergency department, CT of the head was done, which revealed no acute intracranial pathology. Blood pressure was stable. Pulse oximetry was stable on room air. The patient was admitted for further evaluation. EKG revealed normal sinus rhythm. No acute ischemic changes. Chest x-ray revealed no acute process, but was consistent with interstitial disease, suspect fibrosis. Laboratory work revealed a microcytic anemia with hemoglobin 9.5, hematocrit 26.4, and MCV 131. ADMITTING DIAGNOSES: Includes: 1. Syncope with collapse. 2. Microcytic anemia. 3. Possible fibrosis. HOSPITAL STAY: The patient was admitted. Pulmonology and Cardiology consults were requested. Initially on IV fluids; Sales Associate Fishing seen and evaluated the patient. Supplemental oxygen provided as needed to keep pulse oximetry above 92%. Pulse oximetry was stable on room air. Pulmonary toilet provided as needed. The patient subsequently undergone CT of the chest, which revealed interstitial fibrosis. Echocardiogram revealed ejection fraction of 55% to 60% and right ventricular systolic pressure of 26. Relay Adjuster seen and evaluated the patient. Per Cardiology, syncope probably related to volume depletion, since the patient stated that he did not have much of oral intake or drinking fluids for the last two days prior to the episode , and he was getting dizziness on standing. The patient was anemic, which could have contributed to syncope as well. However, per mica miner blasting, the cause of syncope, likely was related to volume depletion. Orthostatic vital signs were stable. Anemia workup revealed B12 deficiency. The patient was on the daily B12 injections while in the hospital. The patient will need monthly B12 injections by primary medical doctor, which was explained to the patient , as well as the need to check B 12 level. DVT prophylaxis provided. The patient was working with physical and occupational therapists. Carotid duplex revealed mild stenosis, however, distal internal carotid artery approached 50% of stenosis. Recommended to follow up as outpatient with the primary doctor for further management. Pulmonary fibrosis likely idiopathic, and the patient needs to follow up with veterinary virus serum inspector as per his insurance. The patient was stable for discharge. DISCHARGE DIAGNOSES: 1. Syncope with collapse. 2. Interstitial pulmonary fibrosis. 3. Microcytic anemia. 4. B12 deficiency anemia. DISCHARGE MEDICATIONS: See medication reconciliation list. DISCHARGE INSTRUCTIONS: The patient was discharged home. Follow up with the primary medical doctor. Zaid Davey M.D. I have been assigned to dictate discharge summary on this account and I was not involved in the patient's management. Peggy Newelldonna N.PLexy DR: MARKUS JOB#: [id number] CC: SCOTT
== END 2017-04-08 12:38 | disposition home or self-care (01) | DRG 641 ==
LOC: EMR 14:15 → 2E 15:10 → EDBEDREQ 17:02 → 2E 18:41
DX: E86.9 Volume depletion, unspecified (principal); J84.112 Idiopathic pulmonary fibrosis; D50.9 Iron deficiency anemia, unspecified; R55 Syncope and collapse; E53.8 Deficiency of other specified B group vitamins; Z87.891 Personal history of nicotine dependence
CPT/HCPCS: 36415; 70450; 71010; 71250; 80053; 80061; 82270; 82378; 82550; 82553; 82607; 82746; 82962; 83540; 83550; 83615; 83880; 84443; 84484; 85007; 85025; 85044; 85060; 85610; 85651; 85730; 93005; 93306; 93880; 94664